=== PATIENT | female | born 2000 | race Caucasian/White ===

== ENCOUNTER 2022-01-16 01:58 | Emergency (ER) | payer OTHER, SELFPAY ==
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
[2022-01-16 02:05] VITALS: BP 135/83; PULSE 75; RESP 18; TEMP 35.8; O2SAT 98; BMI 25.6
[2022-01-16 03:08] LABS: UPreg QC Valid YES; Urine Pregnancy NEGATIVE (NEGATIVE)
[2022-01-16] MEDS: 0.9 % Sodium Chloride 1,000 ML 999 ML IV (03:15)
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
--- NOTE | 2022-01-16 03:16 | PC.NURSE ---
IV established, labs obtained, pt medicated per DEC, aware of plan for CT.
[2022-01-16 03:17] LABS: Appearance Urine CLEAR; Color Urine YELLOW; Glucose Urine UA NEG (NEG); Leukocyte Esterase Urine NEG (NEG); Nitrite Urine NEG (NEG); Specific Gravity - Urine <= 1.005 (1.005-1.025); UACC Culture Trigger NO; Urine Blood 1+ (NEG); Urine Ketones NEG (NEG); Urine Protein NEG (NEG-TRACE)
[2022-01-16 03:22] LABS: MANUAL DIFF FLAG NO
[2022-01-16 03:23] LABS: Basophils Percent Auto 0.5 % (0-2); Eosinophils Absolute Auto 0.3 X10*3/uL (0.0-0.4); Eosinophils Percent Auto 4.7 % (0-4); Hematocrit 38.7 % (37.0-47.0); Hemoglobin 13.1 g/dl (12.0-16.0); Imm Gran Abs Auto 0.01 X10*3/uL (0.00-0.03); Imm Gran Pct Auto 0.2 % (0.0-0.4); Lymphocytes Absolute Auto 2.6 X10*3/uL (1.2-4.9); Lymphocytes Percent Auto 44.6 % (20-40); Mean Corpuscular HGB Conc 33.9 g/dl (31.0-35.0); Mean Corpuscular Hemoglobin 30.5 pg (27.0-33.0); Mean Corpuscular Volume 90.2 fL (80.0-98.0); Mean Platelet Volume 10.1 fL (9.4-12.3); Monocytes Absolute Auto 0.5 X10*3/uL (0.1-1.2); Monocytes Percent Auto 8.6 % (2-11); Neutrophils Absolute Auto 2.4 x10*3/uL (2.0-8.3); Neutrophils Percent Auto 41.4 % (45-73); Platelet Count 201 X10*3/uL (160-400); Red Blood Count 4.29 X10*6/uL (4.20-5.50); Red Cell Distribution Width 12.3 % (11.0-16.0); White Blood Count 5.9 X10*3/uL (4.8-10.8)
[2022-01-16 03:24] LABS: Mucus Urine TRACE /LPF; RBC Urine 0-2 /HPF (0); Squamous Epithelial Cell Urine TRACE /LPF; WBC Urine 0 /HPF (0-4)
[2022-01-16 03:49] LABS: Alanine Aminotransferase 13 U/L (0-31); Albumin Level 4.2 g/dL (3.5-5.0); Alkaline Phosphatase 68 U/L (39-117); Anion Gap 13 (12-20); Aspartate Amino Transferase 19 U/L (5-31); Bilirubin Direct 0.2 mg/dL (0.0-0.5); Bilirubin Total 0.6 mg/dL (0.0-1.0); Blood Urea Nitrogen 10 mg/dL (9-16); Calcium 9.2 mg/dL (8.4-10.2); Carbon Dioxide 24 mmol/L (22-29); Chloride 105 mmol/L (96-108); Estimated Glomerular Filt Rate > 60; Glucose Random 95 mg/dL (60-115); Lipase 49 U/L (8-78); Magnesium 2.2 mg/dL (1.6-2.6); Potassium 3.8 mmol/L (3.3-5.1); Sodium 138 mmol/L (135-145); Total Protein 7.1 g/dL (6.5-8.0)
--- NOTE | 2022-01-16 04:08 | PC.NURSE ---
Pt off to CT on hospital bed.
[2022-01-16] MEDS: iohexoL 350 MG/ML 100 ML INFUS..BTL 85 ML IV (04:26)
== END 2022-01-16 05:34 | disposition home or self-care (01) ==
PROVIDERS: Emergency Provider Emergency Medicine
DX: Z04.1 Encounter for examination and observation following transport accident (principal); R10.32 Left lower quadrant pain
CPT/HCPCS: 36415; 74177; 80048; 80076; 81001; 81025; 83690; 83735; 85025; 96360; 99283; 99284; Q9967